=== PATIENT | male | born 1980 | race Caucasian/White ===

== ENCOUNTER 2016-10-17 14:43 | Emergency (ER) | payer OTHER ==
[~2016-10-17] VITALS: Wt 91.1 kg
--- NOTE | 2016-10-17 14:56 | ERD ---
ER Documentation Chief Complaint Date/Time DATE: 10/17/16 TIME: 14:50 Chief Complaint CONGESTION, BODYACHES, FEVER HPI 36 y/o male presents to ED for congestion, body aches, fever. Stated that his symptoms been going on and off for less than a week. He was exposed to his son who has the same symptoms. Denies headache, loss of consciousness, dizziness, blurry vision, changes in vision, photophobia, ear pain, throat pain, difficulty swallowing, neck pain, shoulder pain, chest pain, cough, hemoptysis, abdominal pain, back pain, loss of appetite, nausea, vomiting, hematochezia, diarrhea, constipation, urinary symptoms, bladder and bowel incontinences, extremity weakness, extremity tenderness, numbness or tingling sensation, difficulty walking, recent travel, recent exposure to illness, recent antibiotic use in the last 3 months, fever, chills. Allergy: NKA PMH: Denies. Family medical history: Denies. Medications: Denies. Surgery: Denies. Social: As a construction cost estimator. Denies smoking, use of alcohol, use of illegal drugs. ROS All systems reviewed and are negative except as per history of present illness. Medications Home Meds Active Scripts Fluticasone Propionate (Flonase Allergy Relief) 9.9 Ml [place].susp, 1 SPRAY NASAL DAILY, #1 BOTTLE TO EACH NOSTRIL Prov:JOANCARMENVIKTORTANGELA Kincaid 10/17/16 Guaifenesin-Dextromethorphan* (Robitussin* DM) 100MG/10MG/5ML Syrup, 10 ML PO Q4H Y for COUGH for 7 Days, ML Prov:JOANCARMENVIKTORTANGELA Kincaid 10/17/16 Ibuprofen* (Motrin*) 600 Mg Tab, 600 MG PO Q6 Y for PAIN, #30 TAB Prov:JOANCARMENVIKTORTANGELA Kincaid 10/17/16 Amoxicillin/Potassium Clav (Amox-Clav 875-125 mg Tablet) 875-125 mg Tab, 1 TAB PO BID for 7 Days, #14 TAB Prov:JOSE ALBERTOLILAVIKTORTANGELA Sanjiv 10/17/16 Allergies Allergies: Coded Allergies: No Known Allergy (Unverified , 01/19/14) Physical Exam Vitals Vital Signs Date Time Temp Pulse Resp B/P Pulse Ox O2 Delivery O2 Flow Rate FiO2 10/17/16 14:46 98.0 111 18 132/78 98 Physical Exam CONSTITUTIONAL: Well-appearing; well-nourished; in no apparent distress.~ HEAD: Normocephalic; atraumatic.~ No visible or palpable masses. EYES: Conjunctiva clear, sclera non-icteric, EOM intact. PERRL Ears: Hearing intact. EACs clear, TMs non-bulging, non-inflamed, translucent & mobile, ossicles normal appearance, No obstructions, no erythema, no discharges Nose: No obstructions. No polyps. No external lesions. Mucosa inflamed. No external lesions, septum and turbinates normal. No rhinorrhea. No discharges. Frontal sinus is tender to palpation. Maxillary sinus is tenderness to palpation. MOUTH: Moist mucous membranes, no lesion, no obstructions, no vesicles, no thrush TEETH: No obvious carries or periodontal diseases. No gingival inflammation, lesions, bleeding, discharge. Throat: Uvula in midline. Right tonsil is +2 with no erythema, no exudate. Left tonsil is +2 with no erythema, no exudate. Tolerating secretions well. Good gag reflex. Neck: Supple, without lesions, bruits, or adenopathy. No mass. Thyroid non- enlarged and non-tender to palpation. CHEST: Symmetrical chest. Respirations even and not labored. No retractions noted. CARDIOVASCULAR: Normal S1, S2. RRR. No murmurs, gallops. RESPIRATORY: Normal chest excursion with respiration; breath sounds clear and equal bilaterally; no wheezes, rhonchi, or rales. Breathing even and unlabored. Speaking in clear, full, and complete sentences w/ ease. ABDOMEN: Normal bowel sounds normal. Soft, round, non-distended, non-guarding, no tenderness, no rebound, no organomegaly, no masses, no pulsating abdominal mass. No hernia. No peritoneal signs. : NO CVA Tenderness. BACK: Symmetrical shoulder. Spine is midline without deformity, tenderness. No evidence of trauma or deformity. PELVIS: Stable pelvis. No evidence of trauma or deformity.~ MUSCULOSKELETAL: Normal gait and station. No misalignment, asymmetry, crepitation, defects, tenderness, masses, effusions, decreased range of motion, instability, atrophy or abnormal strength or tone in the head, neck, spine, ribs , pelvis or extremities. No calf tenderness. NEUROVASCULAR: Distal pulses are present. Pedal pulse are present, equal, and normal. Cap refills are < 2 seconds. NEUROLOGIC: Alert and oriented x4. Speaks full and clear sentences. Cranial Nerves II-XII normal. Sensation to pain, touch, and proprioception normal. Grossly unremarkable. No neurologic deficits. Romberg test is negative. PSYCHOLOGICAL: The patients mood and manner are appropriate. No hallucinations , delusions. Not SI. Not HI. Has the capacity to decide for himself/herself. SKIN: Normal for age and ethnicity; warm; dry; good turgor; no apparent lesions or exudates. No rashes, hives, discoloration. Intact. Procedures/MDM Examination. Patient and family member agreed with the plan of care and medical management. Medications prescribed are the following: Augmentin. Motrin. Robitussin. Flonase. Patient and family member are made aware of the side effects of and adverse reactions of the medications prescribed. Instructed on when to seek emergent and medical attention in case allergic/anaphylactic reactions or severe side effects and or adverse reactions to medications. Patient and family member verbalized understanding. EENT instructions: Rest. Increase fluid intake. Avoid allergens. Take medications as prescribed. Educated on the disease process, treatment and emergency actions. Respiratory instructions: Increase fluid intake. Good hydration at home. Use humidifier. Rest. Avoid smoking/allergens. Educated on disease process, treatment and emergency actions. Patient instructed Instructed to follow-up with his PCP in 24 hours. Instructed to Call 911 for chest pain, shortness of breath. Advised to come back here in ED as soon as possible for severity of symptoms which includes but not limited to: any new symptoms; shortness of breath/difficulty of breathing; cardiovascular changes; severe gastrointestinal symptoms; signs and symptoms of bleeding and or infection; signs of compartment syndrome/neurovascular changes; neurological changes/deficits. Patient and family member verbalized understanding. Upon discharge, patient is alert and oriented x 4, patient speaks full and clear sentences, patient denies pain, patient has no neurological deficits, patient has no neurovascular deficits. No difficulty of breathing. Lung sounds are clear to auscultation. Not in distress. Appears comfortable. Not in distress. Appears satisfied with care provided here in ED. Departure Diagnosis: Primary Impression: Sinusitis, acute frontal Recurrence: not specified as recurrent Qualified Code: J01.10 - Acute frontal sinusitis, recurrence not specified Additional Impression: Sinusitis, acute maxillary Recurrence: not specified as recurrent Qualified Code: J01.00 - Acute maxillary sinusitis, recurrence not specified Condition: Good Additional Instructions: Follow-up with PCP in the next 24-48 hours. TIFFANY DOWNEY Oct 17, 2016 14:56
[2016-10-17] MEDS ORDERED: AMOX1TAB10 PO (14:58)
[2016-10-17] MEDS ORDERED: IBUP-1542 PO (14:59)
[2016-10-17] MEDS ORDERED: UDROBDM PO (14:59)
[2016-10-17] MEDS ORDERED: FLUT9.9S NASAL (15:08)
== END 2016-10-17 15:07 | disposition home or self-care (01) ==
LOC: FTE 14:43 → E/R 15:07
DX: J01.10 Acute frontal sinusitis, unspecified (principal); J01.00 Acute maxillary sinusitis, unspecified
CPT/HCPCS: 99283

== ENCOUNTER 2017-09-13 22:19 | Emergency (ER) | END 2017-09-14 03:56 | disposition left against medical advice (07) ==